=== PATIENT | male | born 1955 | race Caucasian/White ===

== ENCOUNTER 2020-01-16 13:41 | Day surgery (SDC) | payer OTHER ==
[2020-01-16] MEDS ORDERED: ACET325 (16:09)
[2020-01-16] MEDS ORDERED: AMLODIPINE-OLM1 EAC4 PO (16:11)
[2020-01-16] MEDS ORDERED: Benztropine Me0.5 MG (16:12)
[2020-01-16] MEDS ORDERED: ERGO400 PO (16:13)
[2020-01-16] MEDS ORDERED: DIVA500EC PO (16:13)
[2020-01-16] MEDS ORDERED: DOC250 PO (16:15)
[2020-01-16] MEDS ORDERED: FERSU300 (16:30)
[2020-01-16] MEDS ORDERED: LISI20 PO (16:31)
[2020-01-16] MEDS ORDERED: LATUDA120 MG PO (16:31)
[2020-01-16] MEDS ORDERED: METFORMIN500 MG/51 PO (16:32)
[2020-01-16] MEDS ORDERED: MAGNESIUM OXID500 MG PO (16:32)
[2020-01-16] MEDS ORDERED: Milk Of Ma400 MG/5 M PO (16:32)
[2020-01-16] MEDS ORDERED: Venlafaxine HC100 MG PO (16:33)
[2020-01-16] MEDS ORDERED: TRAZ50 (16:33)
== END 2020-01-16 15:25 | disposition home or self-care (01) ==
LOC: ATC 13:41
DX: M86.68 Other chronic osteomyelitis, other site (principal); E11.9 Type 2 diabetes mellitus without complications; D64.9 Anemia, unspecified; T23.04 Burn of unspecified degree of multiple fingers (nail), including thumb; T30.0 Burn of unspecified body region, unspecified degree; B37.2 Candidiasis of skin and nail; K59.00 Constipation, unspecified; L02.612 Cutaneous abscess of left foot; I10 Essential (primary) hypertension; E78.5 Hyperlipidemia, unspecified; E87.1 Hypo-osmolality and hyponatremia; L40.9 Psoriasis, unspecified; F29 Unspecified psychosis not due to a substance or known physiological condition; Z91.030 Bee allergy status; Z79.4 Long term (current) use of insulin; Z86.31 Personal history of diabetic foot ulcer; Z86.59 Personal history of other mental and behavioral disorders; Z96.1 Presence of intraocular lens; Z79.899 Other long term (current) drug therapy
CPT/HCPCS: 36569; C1751

== ENCOUNTER 2020-03-29 07:23 | Day surgery (SDC) | payer OTHER ==
[~2020-03-29 07:23] MED LIST: ACET325; AMLODIPINE-OLM1 EAC4 PO; Benztropine Me0.5 MG; DIVA500EC PO; DOC250 PO; ERGO400 PO; FERSU300; LATUDA120 MG PO; LISI20 PO; MAGNESIUM OXID500 MG PO; METFORMIN500 MG/51 PO; Milk Of Ma400 MG/5 M PO; TRAZ50; Venlafaxine HC100 MG PO
== END 2020-03-29 23:45 | disposition home or self-care (01) ==
LOC: MOI US 07:23
DX: C50.922 Malignant neoplasm of unspecified site of left male breast (principal); Z17.0 Estrogen receptor positive status [ER+]; Z79.84 Long term (current) use of oral hypoglycemic drugs; Z79.899 Other long term (current) drug therapy
CPT/HCPCS: 19083; 77065; A4648

== ENCOUNTER 2020-04-26 08:30 | Day surgery (SDC) | payer OTHER, MEDICARE | END 2020-04-26 22:42 | disposition home or self-care (01) | LOC: MOI MAM 08:30 → MOI US 08:45 → MOI MAM 08:45 | DX: C50.122 Malignant neoplasm of central portion of left male breast (principal) | CPT/HCPCS: 38505; 76942; 88305; A4648 ==